=== PATIENT | male | born 1990 | race Caucasian/White ===

== ENCOUNTER → 2017-10-14 | Outpatient (CLI) | payer MEDICAID ==
[~2017-10-14] MED LIST: AUGMENTIN 500 M1 TAB PO; IBUPROFEN600 MG OR; KEFLEX 500MG.500 MG PO; MOTRIN600 MG PO; NOMEDS XX; SEPTRA DS 800 M1 TAB PO
[2017-10-14 11:42] LABS: HEMOGLOBIN 16.1 g/dL (14.1-18.0); LYMPH # 1.5 K/mm3 (0.7-4.5); LYMPH % 23.1 % (10-50)
[2017-10-14 13:26] LABS: BUN 14 mg/dL (7-18)
[2017-10-14 13:29] LABS: GFR (ESTIMATED) 103 ML/MIN (>60)
[2017-10-15 09:38] LABS: HBsAg Screen Negative (Negative); Hep A Ab, IgM Negative (Negative); Hep B Core Ab, IgM Negative (Negative); Hep C Virus Ab <0.1 (0.0-0.9)
== END ==
LOC: LAB 11:15
PROVIDERS: Nurse Practitioner Family
DX: Z00.00 Encounter for general adult medical examination without abnormal findings (principal)